=== PATIENT | female | born 1975 | race Two or more races ===

== ENCOUNTER 2023-02-20 13:13 | Outpatient (CLI) | payer OTHER ==
[~2023-02-20 13:13] MED LIST: ABILIFY2 MG PO; AMBIEN10 MG PO; MILLIPRED5 MG PO; NABUMETONE750 MG PO; TOPROL XL50 M1 PO; ZOCOR20 MG PO; [UNRECOGNIZED DRUG - OTHER] PO
== END 2023-02-20 13:43 | disposition home or self-care (01) ==
LOC: RAD 13:13
PROVIDERS: ATTEND Orthopaedic Surgery Hand Surgery
DX: M79.631 Pain in right forearm (principal); M19.031 Primary osteoarthritis, right wrist

== ENCOUNTER 2023-03-04 06:56 | Day surgery (SDC) | payer OTHER ==
[~2023-03-04] VITALS: Ht 162.6 cm; Wt 81.6 kg
[~2023-03-04 06:56] MED LIST changes: +CREST PO; +LISINOP PO; +METROTEZATE PO; +RELAF PO; +RINVOQ ER15 MG PO
== END 2023-03-04 21:25 | disposition home or self-care (01) ==
LOC: U 06:56 → CIR.AMB 06:56
PROVIDERS: ATTEND Orthopaedic Surgery Hand Surgery
DX: M19.221 Secondary osteoarthritis, right elbow (principal); T84.7XXA Infection and inflammatory reaction due to other internal orthopedic prosthetic devices, implants and grafts, initial encounter; M65.821 Other synovitis and tenosynovitis, right upper arm; I10 Essential (primary) hypertension; Z20.822 Contact with and (suspected) exposure to COVID-19; E11.9 Type 2 diabetes mellitus without complications
CPT/HCPCS: 24363; 24160; L8699

== ENCOUNTER 2023-10-21 05:10 | Day surgery (SDC) | payer OTHER ==
[2023-10-14 09:18] LABS: URINE APPEARANCE Turbid; URINE BILIRRUBIN Negative (NEGATIVE); URINE BLOOD Moderate; URINE COLOR Yellow; URINE GLUCOSE Negative (NEGATIVE); URINE LEUKOCYTE Large; URINE NITRATE Positive; URINE PROTEIN 30 (NEGATIVE); URINE UROBILINOGEN 0.2 E.U./dl
[2023-10-14 09:22] LABS: MEAN CELL VOLUME 82.2 fL (80.00-100.00); MEAN CORPUSCULAR HEMOGLOBIN 26.6 pg (27.00-32.0); MEAN CORPUSCULAR HGB CONC 32.4 g/dl (32.0-36.0); PLATELET COUNT 317 K/uL (150-450); RED BLOOD COUNT 4.13 M/uL (4.00-6.00); RED CELL DISTRIBUTION WIDTH 14.4 % (11.5-14.5)
[2023-10-14 09:23] LABS: URINE EPITHELIAL CELLS 10.6 uL (0.0-38.8)
[2023-10-14 09:51] LABS: INR 1.05; PARTIAL THROMBOPLASTIN TIME 32.2 SECONDS (22.0-34.0)
[2023-10-14 09:52] LABS: URINE BACTERIA > 9821.5 uL (0.0-1933); URINE WBC > 5548.3 uL (0.0-23.2)
[2023-10-14 10:03] LABS: ALBUMIN 3.2 gm/dL (3.4-5.0); BILIRUBIN TOTAL 0.44 mg/dL (0.3-1.2); CALCIUM 8.9 mg/dL (8.5-10.1); CREATININE SERUM 1.17 mg/dL (0.55-1.02); GFR 48.96; GLOBULINA 4.3 G/DL (2.4-3.5); POTASSIUM 4.27 mEq/L (3.5-5.1); TOTAL PROTEIN 7.5 gm/dL (6.4-8.2)
== END 2023-10-21 14:05 | disposition home or self-care (01) ==
LOC: CIR.AMB 05:10
PROVIDERS: ATTEND Orthopaedic Surgery Hand Surgery
DX: M19.221 Secondary osteoarthritis, right elbow (principal)
CPT/HCPCS: 24363; L8699

== ENCOUNTER 2024-08-10 05:42 | Day surgery (SDC) | payer OTHER ==
[2024-07-30 09:53] LABS: HEMATOCRIT 31.5 % (36.0-45.00); HEMOGLOBIN 10.1 g/dL (12.0-15.00); MEAN CELL VOLUME 77.1 fL (80.00-100.00); MEAN CORPUSCULAR HEMOGLOBIN 24.8 pg (27.00-32.0); MEAN CORPUSCULAR HGB CONC 32.1 g/dl (32.0-36.0); PLATELET COUNT 493 K/uL (150-450); RED BLOOD COUNT 4.08 M/uL (4.00-6.00); RED CELL DISTRIBUTION WIDTH 16.7 % (11.5-14.5)
[2024-07-30 09:59] LABS: URINE APPEARANCE Turbid; URINE BILIRRUBIN Negative (NEGATIVE); URINE BLOOD Moderate; URINE COLOR Yellow; URINE GLUCOSE Negative (NEGATIVE); URINE KETONE Negative (NEGATIVE); URINE LEUKOCYTE Large; URINE NITRATE Positive; URINE UROBILINOGEN 0.2 E.U./dl
[2024-07-30 10:05] LABS: URINE EPITHELIAL CELLS 18.3 uL (0.0-38.8); URINE RBC 42.5 uL (0.0-20.8)
[2024-07-30 10:13] LABS: INR 1.08; PARTIAL THROMBOPLASTIN TIME 27.5 SECONDS (22.0-34.0); PROTHROMBIN TIME 11.7 SECONDS (9.0-11.5)
[2024-07-30 10:48] LABS: URINE BACTERIA > 9821.5 uL (0.0-1933); URINE PROTEIN 100 (NEGATIVE); URINE WBC > 5548.3 uL (0.0-23.2)
[2024-07-30 10:58] LABS: ALBUMIN 3.2 gm/dL (3.4-5.0); BILIRUBIN TOTAL 0.47 mg/dL (0.3-1.2); CALCIUM 9.7 mg/dL (8.5-10.1); CREATININE SERUM 1.11 mg/dL (0.55-1.02); GFR 51.82; GLOBULINA 4.7 G/DL (2.4-3.5); POTASSIUM 3.83 mEq/L (3.5-5.1); TOTAL PROTEIN 7.9 gm/dL (6.4-8.2)
[~2024-08-10 05:42] MED LIST changes: +ORENCIA50 MG/0.4 SQ
[2024-08-10] MEDS ORDERED: CEFAZOLIN SODIUM 1,000 MG in 0.9 % SODIUM CHLORIDE 50 ML IV ONE (09:45)
[2024-08-10] MEDS ORDERED: BUPIVACAINE HCL 30 ML VIAL IJ ONE (11:15)
[2024-08-10] MEDS ORDERED: MORPHINE SULFATE 4 MG/ML VIAL IV ONE (11:30)
== END 2024-08-10 14:30 | disposition home or self-care (01) ==
LOC: CIR.AMB 05:42
PROVIDERS: ATTEND Orthopaedic Surgery Hand Surgery
DX: M19.241 Secondary osteoarthritis, right hand (principal); M05.79 Rheumatoid arthritis with rheumatoid factor of multiple sites without organ or systems involvement